=== PATIENT | male | born 1960 | race Caucasian/White ===

== ENCOUNTER 2021-02-03 19:49 | Inpatient (IN) | payer OTHER ==
[~2021-02-03] VITALS: Ht 182.9 cm; Wt 80.7 kg
--- NOTE | 2021-02-03 19:54 | NUR ---
Donis gibbons in [facility] - 02/03/21 at 1959 by ROSALINA CALLED TO TRIAGE. NOT IN WAITING ROOM
--- NOTE | 2021-02-03 19:59 | NUR ---
PT BIBA FROM HOME FOR MEDICAL CLEARANCE. PT ON A 5150 HOLD FOR DTS. PT CALM AND COOPERATIVE, AAOX4, VSS, RESPIRATIONS EVEN AND UNLABORED ON RA W/ NAD NOTED. PT CHANGED INTO GOWN, BELONGINGS PLACED TO LOCKER, SAFETY PRECAUTIONS IMPLEMENTED. SITTER AT BEDSIDE.
[2021-02-03 20:14] LABS: BASOPHILS # (AUTO) 0.1 /CMM (0.0-0.2); BASOPHILS % (AUTO) 1.5 % (0.0-2.0); HEMATOCRIT 40 % (39-51); HEMOGLOBIN 13.9 g/dL (13.5-17.5); LYMPHOCYTES # (AUTO) 1.6 /CMM (0.8-4.8); LYMPHOCYTES % (AUTO) 24.5 % (20.0-44.0); MEAN CORPUSCULAR HGB CONC 35 g/dl (31.0-36.0); MEAN CORPUSCULAR VOLUME 87 fL (80-96); MONOCYTES # (AUTO) 0.5 /CMM (0.1-1.30); MONOCYTES % (AUTO) 7.9 % (2.0-12.0); NEUTROPHILS # (AUTO) 3.9 /CMM (1.8-8.9); NEUTROPHILS % (AUTO) 59.1 % (43.0-81.0); PLATELET COUNT (AUTO) 267 /CMM (150-450); RED BLOOD CELL COUNT(AUTO) 4.62 MIL/uL (4.5-6.0); WHITE BLOOD COUNT (AUTO) 6.6 K/uL (4.3-11.0)
[2021-02-03] MEDS ORDERED: LORAZEPAM 1 MG TABLET ONE (20:14)
--- NOTE | 2021-02-03 20:24 | NUR ---
COVID SWAB SENT TO LAB
[2021-02-03 20:28] LABS: CALCIUM, SERUM 9.4 mg/dL (8.5-10.1); CARBON DIOXIDE 26 mmol/L (21-32); CHLORIDE 101 mmol/L (98-107); CREATININE 1.3 mg/dL (0.6-1.3); GLUCOSE 153 mg/dL (74-106); POTASSIUM 3.9 mmol/L (3.5-5.1); SODIUM SERUM 140 mmol/L (136-145); UREA NITROGEN, BLOOD 30 mg/dL (7-18)
[2021-02-03] MEDS ORDERED: LORAZEPAM 1 MG TABLET PO ONE (20:30)
[2021-02-03 20:37] LABS: ALANINE AMINOTRANSFERASE 39 U/L (12-78); ALBUMIN 3.8 g/dL (3.4-5.0); ALCOHOL, BLOOD < 3 mg/dL (0-0); ALKALINE PHOSPHATASE 117 U/L (46-116); ASPARTATE AMINOTRANSFERASE 23 U/L (15-37); BILIRUBIN,DIRECT 0.1 mg/dL (0.0-0.2); BILIRUBIN,TOTAL 0.3 mg/dL (0.2-1.0); TOTAL PROTEIN, SERUM 7.5 g/dL (6.4-8.2)
[2021-02-03 20:39] LABS: ACETAMINOPHEN 0 ug/ml (10-30)
--- NOTE | 2021-02-03 20:43 | NUR ---
covid negative per lab
[2021-02-03] MEDS ORDERED: IV NS 0.9% 1,000 ML BAG IV ONE (21:00)
--- NOTE | 2021-02-03 21:23 | NUR ---
REPORT GIVEN TO CORY MARTINEZ FOR ROMAN
[2021-02-03] MEDS ORDERED: MAGNESIUM HYDROXIDE 30 ML UDC PO PRN (23:00)
[2021-02-03] MEDS ORDERED: MAG HYDROX/AL HYDROX/SIMETH 30 ML UDC PO PRN (23:00)
[2021-02-03] MEDS ORDERED: ACETAMINOPHEN 325 MG TABLET PO PRN (23:00)
[2021-02-03] MEDS ORDERED: BLOOD SUGAR DIAGNOSTIC 1 EACH STRIP IN ONE (23:00)
[2021-02-03] MEDS ORDERED: DEXTROSE 50%-WATER 50 ML DISP.SYRIN IV PRN (23:00)
[2021-02-03] MEDS ORDERED: ESZO2TAB31 PO (23:02)
[2021-02-03] MEDS ORDERED: CARI3CAP PO (23:11)
[2021-02-03] MEDS ORDERED: DILT300C57 PO (23:12)
[2021-02-03] MEDS ORDERED: METO-358 PO (23:15)
[2021-02-03] MEDS ORDERED: GABA-532 PO (23:15)
[2021-02-03] MEDS ORDERED: METF-442 PO (23:16)
[2021-02-03] MEDS ORDERED: ATOR20TA PO (23:17)
[2021-02-03] MEDS ORDERED: PARO40TA PO (23:19)
--- NOTE | 2021-02-03 23:19 | NUR ---
RN NOTE PATIENT ADMITTED TO GPS UNIT, A & O X 3, DEPRESSED, QUIET & GUARDED. VERIFIED WITH THE PATIENT WHO TO CALL IN HIS FAMILY TO NOTIFY ABOUT HIS ADMISSION AT [facility] GPS UNIT. PATIENT STATED," I LIVE WITH MY SISTER KATARINA, WHO IS A PHYSICIAN AT [facility] & SHE IS AT WORK RIGHT NOW, SHE KNOWS THAT I AM HERE, DON'T CALL HER NOW, IT'S LATE." WHEN ASKED THE PATIENT ABOUT CALLING [facility]EW[facility] MELGOZA WHO IS LISTED ON THE FACE SHEET, PT. STATED," HE IS MY BROTHER IN LAW, IT'S TOO LATE & I DON'T WANT YOU TO CALL THEM TOO EARLY IN THE MORNING WELL, I WILL CALL THEM DURING DAY TIME TO LET THEM KNOW THAT I AM HERE EVEN MY SISTER KNOWS THAT I AM HERE." WILL CONTINUE TO MONITOR THE PATIENT FOR SAFETY, MOOD & BEHAVIOR.
[2021-02-03] MEDS ORDERED: CHLO25TA13 PO (23:21)
[2021-02-03] MEDS ORDERED: INSU100V7 SQ (23:25)
[2021-02-03] MEDS: TEMAZEPAM 7.5 MG CAPSULE PO PRN (23:25)
--- NOTE | 2021-02-03 23:26 | NUR ---
RN NOTES: INSOMNIA : PT. C/O INSOMNIA RESTORIL 7.5 MG PO PRN GIVEN, WILL CONTINUE TO MONITOR.
[2021-02-03] MEDS ORDERED: INSU100I4 SQ (23:28)
[2021-02-03] MEDS: INSULIN REGULAR, HUMAN 100 UNIT/ML 3 ML VIAL SQ PRN (23:53)
[2021-02-04] MEDS ORDERED: DEXTROSE 50%-WATER 50 ML DISP.SYRIN IV PRN
[2021-02-04] MEDS ORDERED: INSULIN REGULAR, HUMAN 100 UNIT/ML 3 ML VIAL SQ PRN
[2021-02-04 00:46] VITALS: BP 135/78
--- NOTE | 2021-02-04 01:19 | NUR ---
ADMISSION NOTES: ADMITTED THIS 60Y/O MALE PATIENT ADMIT FROM [facility] /INTIALLY FROM HOME , PT. ADMITTED TO GPS ON 5150 HOLD , PER HOLD DTS, GD PT. PT. REPORTED BEING DEPRESSED MORE THAN USUAL AND HOPELESS, I HAVE NOTHING TO LIVE, I WANT TO SLEEP AND NEVER WAKE UP, I WANT TO ,UPON FACE TO FACE ASSESSMENT PATIENT IS A&O X 3 ,DISHELVED , DEPRESSED , GUARDED FLAT AFFECT EASILY GETS AGITATED ,DENIES SI /HI AT THIS TIME, PT. IS POOR HISTORIAN, POOR INSIGHT ,POOR JUDGEMENT , PT. REFUSED TO SIGNS ADMISSION CONSENT PAPERS ,DUE TO TIRED BOTH MD AWARE AND NOTIFIED OF THE ADMISSION, BELONGINGS CONTRABAND WERE DONE ,PT. RIGHTS DISCUSS BY [employer] , PROVIDE THE PT. WITH HANDBOOK, AND MEDICATIONS GUIDE, ENVIRONMENTAL SAFETY CHECK DONE, ENCOURAGED PT. VERBALIZED ANY FEELING CONCERN TO STAFF, ORIENT TO UNIT POLICY, NO ACUTE DISTRESS NOTED,VITAL SIGNS WNL ,DENIES ANY PAIN AT THIS TIME,WILL CONTINUE TO MONITOR FOR Q15 SAFETY AND BEHAVIOR.
[2021-02-04] MEDS ORDERED: BLOOD SUGAR DIAGNOSTIC 1 EACH STRIP IN SCH (07:30)
[2021-02-04] MEDS: BLOOD SUGAR DIAGNOSTIC 1 EACH STRIP IN SCH ×4 (07:38→21:13)
[2021-02-04] MEDS: INSULIN REGULAR, HUMAN 100 UNIT/ML 3 ML VIAL SQ PRN ×4 (07:57→21:15)
[2021-02-04 08:00] VITALS: BP 141/77
[2021-02-04] MEDS: METOPROLOL SUCCINATE 50 MG TAB.SR.24H PO SCH (08:44)
[2021-02-04] MEDS: GABAPENTIN 300 MG CAPSULE PO SCH ×3 (08:44→17:16)
[2021-02-04] MEDS: DILTIAZEM HCL CD 300 MG PO SCH (08:45)
[2021-02-04] MEDS: METFORMIN 500 MG TABLET PO SCH ×2 (08:45→17:17)
[2021-02-04] MEDS: LORAZEPAM 0.5 MG TABLET PO PRN ×2 (08:48→14:48)
--- NOTE | 2021-02-04 08:51 | NUR ---
RN NOTE- C/O ANXIETY RESTLESSNESS. ATIVAN 0.5 MG GIVEN
--- NOTE | 2021-02-04 09:00 | NUR ---
RN NOTE- PT ALERT ORIENTED TO PERSON PLACE FLAT AFFECT QUIET WITHDRAWN DEPRESSED THOUGH DENIES SI AT MOMENT. MED COMPLIANT PO INTAKE GOOD
--- NOTE | 2021-02-04 09:30 | NUR ---
RN NOTE- PT STATES RX 'NOT ENOUGH' TOLD PT TO WAIT FOR FULL EFFECTIVENESS OF RX.
--- NOTE | 2021-02-04 14:49 | NUR ---
RN NOTE- C/O ANXIETY RESTLESSNESS/ ATIIVAN 0.5 MG GIVEN
--- NOTE | 2021-02-04 15:51 | NUR ---
RN NOTE- ATIVAN EFFECTIVE BUT PT INSISTS ON STRONGER ANTI ANXIETY RX. WILL NOTIFY DR MERCADO
[2021-02-04 16:00] VITALS: BP 113/62
--- NOTE | 2021-02-04 16:10 | NUR ---
Family Contact: SW called pts sister, Lorena ([phone]), and received collateral history regarding this pt and his relationship with his mom and the deterioration that took place once the mom . SW also discussed discharge placement and pts sister stated that she no longer feels as if she can take care of the pt. CARMEN stated that the discharge plan can be discussed on Sunday.
--- NOTE | 2021-02-04 16:46 | NUR ---
Initial Discharge Plan: Pt currently resides at his sisters house located at [address] [place] [address]; ([phone]). Per pts sister, Lorena ([phone]), she cannot take care of him anymore. SW will work with the pt and the MD regarding appropriate discharge planning. SW will form a safe and proper discharge.
--- NOTE | 2021-02-04 17:30 | NUR ---
RN NOTE- DR MERCADO CHANGED ATIVAN ORDER AND INCREASED TO ATIVAN 1 MG PO Q6H PRN
[2021-02-04 17:40] LABS: BILIRUBIN,URINE NEGATIVE (NEGATIVE); COLOR,URINE YELLOW (YELLOW); LEUKOCYTE ESTERASE ,URINE NEGATIVE (NEGATIVE); NITRITE, URINE NEGATIVE (NEGATIVE); PROTEIN,URINE NEGATIVE (NEGATIVE); UGLUCOSE >=1000 mg/dL (NEGATIVE); UROBILINOGEN,URINE 0.2 EU/dL (0.2)
[2021-02-04 17:50] LABS: CREATININE, URINE 85.4 MG/DL (30.0-125.0); URINE TOTAL PROTEIN 13.9 mg/dL (0-11.9)
[2021-02-04 17:59] LABS: BACTERIA,URINE None seen /HPF (None Seen); RBC,URINE 0-2 /HPF (0-2); SQUAMOUS EPITHELIAL CELL,UR 0-2 /HPF (None Seen); WBC,URINE 0-2 /HPF (0-3)
[2021-02-04 19:20] LABS: EOSINOPHIL,URINE None Seen
[2021-02-04] MEDS: PAROXETINE HCL 20 MG TABLET PO SCH (20:01)
[2021-02-04] MEDS: GABAPENTIN 400 MG CAPSULE PO SCH (20:01)
[2021-02-04 20:02] VITALS: BP 125/69
[2021-02-04] MEDS: ATORVASTATIN 10 MG TABLET PO SCH (21:10)
[2021-02-04] MEDS: INSULIN GLARGINE, 100 UNIT/ML CARTRIDGE SQ SCH (21:53)
--- NOTE | 2021-02-04 21:54 | NUR ---
RN NOTES: REFUSAL OF MEDICATIONS PT. REFUSED SCHEDULE MEDS ABILIFY 20 MG PO , AND INSULIN LANTUS , ENCOURGED X3 RISKS AND BENEFITS EXPLINED ,PT. STRONGLY REFUSED, PER PT. ABILIFY MAKE ME SICK ,I DON'T WANT TAKE IT ,WILL CONTINUTY WITH CARE .
[2021-02-04] MEDS ORDERED: ARIPIPRAZOLE 5 MG TABLET PO SCH (22:00)
[2021-02-04] MEDS: TEMAZEPAM 7.5 MG CAPSULE PO PRN (22:19)
--- NOTE | 2021-02-04 22:20 | NUR ---
RN NOTES: INSOMNIA : PT. C/O INSOMNIA RESTORIL 7.5 MG PO PRN GIVEN, WILL CONTINUE TO MONITOR.
[2021-02-05 06:42] LABS: BASOPHILS % (AUTO) 0.8 % (0.0-2.0); CALCIUM, SERUM 8.8 mg/dL (8.5-10.1); EOSINOPHILS % (AUTO) 7.2 % (0.0-6.0); HEMATOCRIT 38 % (39-51); HEMOGLOBIN 12.8 g/dL (13.5-17.5); LYMPHOCYTES # (AUTO) 1.6 /CMM (0.8-4.8); LYMPHOCYTES % (AUTO) 26.8 % (20.0-44.0); MEAN CORPUSCULAR HGB CONC 34 g/dl (31.0-36.0); MEAN CORPUSCULAR VOLUME 87 fL (80-96); MONOCYTES # (AUTO) 0.5 /CMM (0.1-1.30); MONOCYTES % (AUTO) 8.7 % (2.0-12.0); NEUTROPHILS # (AUTO) 3.3 /CMM (1.8-8.9); NEUTROPHILS % (AUTO) 56.5 % (43.0-81.0); PLATELET COUNT (AUTO) 231 /CMM (150-450); POTASSIUM 3.8 mmol/L (3.5-5.1); RED BLOOD CELL COUNT(AUTO) 4.34 MIL/uL (4.5-6.0); WHITE BLOOD COUNT (AUTO) 5.9 K/uL (4.3-11.0)
[2021-02-05 08:00] VITALS: BP 115/62
[2021-02-05] MEDS: INSULIN REGULAR, HUMAN 100 UNIT/ML 3 ML VIAL SQ PRN ×3 (08:17→17:28)
[2021-02-05] MEDS: BLOOD SUGAR DIAGNOSTIC 1 EACH STRIP IN SCH ×4 (08:20→21:12)
[2021-02-05] MEDS: METFORMIN 500 MG TABLET PO SCH ×2 (09:19→17:22)
[2021-02-05] MEDS: PAROXETINE HCL 20 MG TABLET PO SCH (09:19)
[2021-02-05] MEDS: LORAZEPAM 1 MG TABLET PO PRN ×2 (09:29→15:36)
--- NOTE | 2021-02-05 09:29 | NUR ---
given ativan 1 mg po for nervousness.
--- NOTE | 2021-02-05 10:34 | NUR ---
vital signs rechecked.now 135/70,heart rate 73 rr16,pox 95%.additional meds given.will recheck again.
[2021-02-05] MEDS: GABAPENTIN 400 MG CAPSULE PO SCH ×3 (10:36→17:22)
[2021-02-05] MEDS: DILTIAZEM HCL CD 300 MG PO SCH (10:37)
--- NOTE | 2021-02-05 15:36 | NUR ---
MEDICATED AGAIN WITH ATIVAN,DR. MERCADO JUST IN AND MADE AWARE PT. REFUSED ABILIFY LAST NIGHT.
[2021-02-05 16:00] VITALS: BP 117/78
[2021-02-05] MEDS: METOPROLOL SUCCINATE 50 MG TAB.SR.24H PO SCH (16:00)
[2021-02-05 19:55] VITALS: BP 127/69
[2021-02-05] MEDS: OLANZAPINE 10 MG TABLET PO SCH (21:09)
[2021-02-05] MEDS: ATORVASTATIN 10 MG TABLET PO SCH (21:10)
[2021-02-05] MEDS: INSULIN GLARGINE, 100 UNIT/ML CARTRIDGE SQ SCH (21:16)
[2021-02-05] MEDS: TEMAZEPAM 7.5 MG CAPSULE PO PRN (21:20)
--- NOTE | 2021-02-05 21:20 | NUR ---
NURSES NOTES: PATIENT REQUESTED FOR SLEEPING MEDICATION- RESTORIL 7.5 MG GIVEN ORDERED. WILL MONITOR PATIENT'S SLEEP PATTERN.
[2021-02-06] MEDS: BLOOD SUGAR DIAGNOSTIC 1 EACH STRIP IN SCH ×4 (07:26→21:13)
--- NOTE | 2021-02-06 07:26 | NUR ---
RN-CO: BS 126, NO INSULIN COVERAGE.
[2021-02-06 08:00] VITALS: BP 151/75
[2021-02-06] MEDS: PAROXETINE HCL 20 MG TABLET PO SCH (08:09)
[2021-02-06] MEDS: GABAPENTIN 400 MG CAPSULE PO SCH ×3 (08:09→17:23)
[2021-02-06] MEDS: METFORMIN 500 MG TABLET PO SCH ×2 (08:09→17:23)
[2021-02-06] MEDS: METOPROLOL SUCCINATE 50 MG TAB.SR.24H PO SCH (08:10)
[2021-02-06] MEDS: DILTIAZEM HCL CD 300 MG PO SCH (08:31)
[2021-02-06] MEDS: LORAZEPAM 1 MG TABLET PO PRN ×2 (11:43→17:56)
--- NOTE | 2021-02-06 11:43 | NUR ---
RN-CO: PT REQUESTED FOR ATIVAN FOR ANXIETY., GIVEN.
--- NOTE | 2021-02-06 11:45 | NUR ---
RN-CO: PATIENT REFUSED ACCUCHECK, HE STATED " I ALREADY STARTED EATING., "
[2021-02-06 16:00] VITALS: BP 114/70
[2021-02-06] MEDS: INSULIN REGULAR, HUMAN 100 UNIT/ML 3 ML VIAL SQ PRN ×2 (16:45→21:15)
[2021-02-06 20:19] VITALS: BP 94/47
[2021-02-06] MEDS: ATORVASTATIN 10 MG TABLET PO SCH (21:14)
[2021-02-06] MEDS: OLANZAPINE 10 MG TABLET PO SCH (21:14)
[2021-02-06] MEDS: INSULIN GLARGINE, 100 UNIT/ML CARTRIDGE SQ SCH (21:16)
[2021-02-06] MEDS: TEMAZEPAM 7.5 MG CAPSULE PO PRN (21:16)
--- NOTE | 2021-02-06 21:30 | NUR ---
NURSES NOTES: PATIENT REQUESTED FOR SLEEPING MEDICATION. RESTORIL 7.5 MG GIVEN ORALLY PRN ORDER. WILL MONITOR EFFICACY OF MEDICATION TO PATIENT.
[2021-02-07] MEDS: BLOOD SUGAR DIAGNOSTIC 1 EACH STRIP IN SCH ×4 (07:37→21:32)
[2021-02-07] MEDS: INSULIN REGULAR, HUMAN 100 UNIT/ML 3 ML VIAL SQ PRN ×3 (07:42→21:40)
--- NOTE | 2021-02-07 07:43 | NUR ---
MS/RN NOTE ACCUCHECK SHOWED PATIENT HAD 154 BS. INSULIN COVERAGE GIVEN, 2 UNITS.
[2021-02-07 08:00] VITALS: BP 133/66
[2021-02-07] MEDS: METFORMIN 500 MG TABLET PO SCH ×2 (08:36→18:04)
[2021-02-07] MEDS: GABAPENTIN 400 MG CAPSULE PO SCH ×3 (08:36→16:09)
[2021-02-07] MEDS: DILTIAZEM HCL CD 300 MG PO SCH (08:36)
[2021-02-07] MEDS: PAROXETINE HCL 20 MG TABLET PO SCH (08:37)
[2021-02-07] MEDS: METOPROLOL SUCCINATE 50 MG TAB.SR.24H PO SCH (08:37)
[2021-02-07] MEDS: LORAZEPAM 1 MG TABLET PO PRN ×2 (10:56→18:04)
--- NOTE | 2021-02-07 10:57 | NUR ---
MS/RN NOTE PATIENT REQUESTING ATIVAN STATES FEELING ANXIOUS. ATIVAN WAS GIVEN.
--- NOTE | 2021-02-07 13:10 | NUR ---
UR Note: [employer] case operator, Yoon ([phone]), contacted the SW and stated that the pt qualifies for a Behavioral Health Condition Management which is bascially case management resources and access to a clinician, Dr. Linh Lang ([phone]).
[2021-02-07 16:32] VITALS: BP 101/50
[2021-02-07 20:00] VITALS: BP 107/49
[2021-02-07] MEDS: TEMAZEPAM 7.5 MG CAPSULE PO PRN (21:02)
[2021-02-07] MEDS: OLANZAPINE 10 MG TABLET PO SCH (21:02)
[2021-02-07] MEDS: ATORVASTATIN 10 MG TABLET PO SCH (21:02)
[2021-02-07] MEDS: INSULIN GLARGINE, 100 UNIT/ML CARTRIDGE SQ SCH (21:36)
[2021-02-08] MEDS: BLOOD SUGAR DIAGNOSTIC 1 EACH STRIP IN SCH ×4 (07:40→21:42)
[2021-02-08] MEDS: INSULIN REGULAR, HUMAN 100 UNIT/ML 3 ML VIAL SQ PRN ×4 (07:48→22:04)
[2021-02-08 08:00] VITALS: BP 151/69
[2021-02-08] MEDS: METFORMIN 500 MG TABLET PO SCH ×2 (08:08→17:52)
[2021-02-08] MEDS: DILTIAZEM HCL CD 300 MG PO SCH (08:10)
[2021-02-08] MEDS: GABAPENTIN 400 MG CAPSULE PO SCH ×3 (08:10→16:25)
[2021-02-08] MEDS: PAROXETINE HCL 20 MG TABLET PO SCH (08:10)
[2021-02-08] MEDS: METOPROLOL SUCCINATE 50 MG TAB.SR.24H PO SCH (08:11)
--- NOTE | 2021-02-08 09:00 | NUR ---
RN NOTE- PT QUIET FLAT AFFECT DIRECTABLE MED COMPLIANT DEPRESSED DENIES SI HI AH VH
--- NOTE | 2021-02-08 12:21 | NUR ---
Family Contact: SW called pts sisterLorena ([phone]), and left a voicemail stating that the SW would like to discuss the pts discharge plan.
[2021-02-08] MEDS: LORAZEPAM 1 MG TABLET PO PRN (12:34)
--- NOTE | 2021-02-08 12:34 | NUR ---
RN NOTE- PT ANXIOUS. REQUESTING PRN. ATIVAN 1MG GIVEN
[2021-02-08 16:00] VITALS: BP 132/68
[2021-02-08 20:30] VITALS: BP 96/43
[2021-02-08 21:40] VITALS: BP 109/62
--- NOTE | 2021-02-08 21:40 | NUR ---
RN NOTE: RECHECKED PATIENT'S VITALS, 109/62, 65, 18, 97.6, 97% AT ROOM AIR. PATIENT HAD SNACK & TOLERATED WELL. NO OTHER SYMPTOMS VERBALIZED BY THE PATIENT AT THIS TIME. WILL CONTINUE TO MONITOR FOR ANY ROMAN.
[2021-02-08] MEDS: TEMAZEPAM 7.5 MG CAPSULE PO PRN (21:52)
[2021-02-08] MEDS: ATORVASTATIN 10 MG TABLET PO SCH (21:52)
--- NOTE | 2021-02-08 21:54 | NUR ---
RN NOTE: INSOMNIA PATIENT VERBALIZED THAT HE IS UNABLE TO SLEEP & WANTED TO TAKE SLEEPING MEDICINE AT THIS TIME. PRN RESTORIL 7.5 MG 1 CAP PO ADMINISTERED. VITALS STABLE AT THIS TIME. WILL CONTINUE TO MONITOR.
[2021-02-08] MEDS: OLANZAPINE 10 MG TABLET PO SCH (21:55)
--- NOTE | 2021-02-08 21:56 | NUR ---
RN NOTE PATIENT REFUSED TO TAKE ZYPREXA 15 MG SCHEDULED DESPITE OF RISKS & BENEFITS EXPLANATIONS. PATIENT PREFERRED TO TAKE RESTORIL DUE TO C/O SLEEPLESSNESS. WILL CONTINUE TO MONITOR THE PATIENT FOR ANY CHANGE OF CONDITION.
[2021-02-08] MEDS: INSULIN GLARGINE, 100 UNIT/ML CARTRIDGE SQ SCH (22:03)
--- NOTE | 2021-02-08 23:43 | NUR ---
RN NOTE: DECREASED BLOOD PRESSURE PATIENT'S VITALS CHECKED 96/43, 73, 16, 98.5, 99% AT ROOM AIR. PATIENT IS ASYMPTOMATIC AT THIS TIME. RESTING IN BED, VERBALLY RESPONSIVE, NO ACUTE CHANGES NOTED. SNACK & JUICE PROVIDED & PT. IS TOLERATING WELL. LOWER EXTREMITIES ELEVATED. CONTINUING TO MONITOR THE PATIENT VERY CLOSELY FOR ANY CHANGE OF CONDITION.
[2021-02-09] MEDS: BLOOD SUGAR DIAGNOSTIC 1 EACH STRIP IN SCH ×4 (07:36→21:56)
[2021-02-09] MEDS: INSULIN REGULAR, HUMAN 100 UNIT/ML 3 ML VIAL SQ PRN ×4 (07:39→22:07)
[2021-02-09 08:00] VITALS: BP 149/76
[2021-02-09] MEDS: METFORMIN 500 MG TABLET PO SCH ×2 (08:30→18:22)
[2021-02-09] MEDS: DILTIAZEM HCL CD 300 MG PO SCH (08:55)
[2021-02-09] MEDS: GABAPENTIN 400 MG CAPSULE PO SCH ×3 (08:55→17:17)
[2021-02-09] MEDS: PAROXETINE HCL 20 MG TABLET PO SCH (08:56)
[2021-02-09] MEDS: METOPROLOL SUCCINATE 50 MG TAB.SR.24H PO SCH (08:56)
--- NOTE | 2021-02-09 09:00 | NUR ---
RN NOTE- REFUSES SHOWER AND INTERACTION W OTHERS PT QUIET FLAT AFFECT DIRECTABLE MED COMPLIANT DEPRESSED DENIES SI HI AH VH
[2021-02-09] MEDS: LORAZEPAM 1 MG TABLET PO PRN ×2 (09:03→15:45)
--- NOTE | 2021-02-09 09:04 | NUR ---
RN NOTE- PT W C/O ANXIETY. ATIVAN 1 MG GIVEN
--- NOTE | 2021-02-09 12:18 | NUR ---
Family Contact: SW called pts sisterLorena ([phone]), and left a voicemail stating that the SW would like to discuss the pts discharge plan.
--- NOTE | 2021-02-09 12:19 | NUR ---
UR Note: CARMEN called [employer] child welfare caseworker, Ugo ([phone]), and left a clinical on her voicemail requesting additional authorization.
--- NOTE | 2021-02-09 14:35 | NUR ---
Family Contact: Pts sister, Lorena ([phone]), called the SW and stated that she does not understand why the insurance company cannot authorize more time for the pt because he is not stable and SW explained the UR process and having to ask for additional days a few days at a time. Pts sister stated that she cannot have the pt to return to her home and placement needs to be secured otherwise the pt will be homeless. She stated that she is aware that the pt will not pay for any placement and states that if that is the case he still cannot come home and "will have to find an overpass to stay under." SW stated that she will update her once there is an answer from the insurance company regarding the pts authorization.
--- NOTE | 2021-02-09 15:45 | NUR ---
RN NOTE- PT W ANXIETY. ATIVAN 1 MG GIVEN
[2021-02-09 16:00] VITALS: BP 121/68
[2021-02-09 20:55] VITALS: BP 113/53
[2021-02-09] MEDS: ATORVASTATIN 10 MG TABLET PO SCH (21:55)
[2021-02-09] MEDS: OLANZAPINE 10 MG TABLET PO SCH (21:55)
[2021-02-09] MEDS: INSULIN GLARGINE, 100 UNIT/ML CARTRIDGE SQ SCH (22:06)
[2021-02-10 08:00] VITALS: BP 140/70
[2021-02-10] MEDS: BLOOD SUGAR DIAGNOSTIC 1 EACH STRIP IN SCH ×4 (08:21→21:15)
[2021-02-10] MEDS: METFORMIN 500 MG TABLET PO SCH ×2 (09:02→18:17)
[2021-02-10] MEDS: GABAPENTIN 400 MG CAPSULE PO SCH ×3 (09:02→16:38)
[2021-02-10] MEDS: METOPROLOL SUCCINATE 50 MG TAB.SR.24H PO SCH (09:03)
[2021-02-10] MEDS: PAROXETINE HCL 20 MG TABLET PO SCH (09:03)
[2021-02-10] MEDS: DILTIAZEM HCL CD 300 MG PO SCH (09:03)
[2021-02-10] MEDS: LORAZEPAM 1 MG TABLET PO PRN (11:32)
--- NOTE | 2021-02-10 12:15 | NUR ---
Probable Cause Hearing: Pts [id number] hold was upheld for grave disability.
[2021-02-10] MEDS: INSULIN REGULAR, HUMAN 100 UNIT/ML 3 ML VIAL SQ PRN ×3 (12:23→21:18)
--- NOTE | 2021-02-10 13:52 | NUR ---
UR Note: Yolie heel caser, Ugo ([phone]), called the SW and left a voicemail stating that the pt is authorized an additional two days with coverage until February 11. agricultural equipment sales manager stated that she wanted additional information for the next review: fax number to send aftercare providers list If the hospital has PHP or IOP If the pts family is involved Why the sister wants higher level of care Past treatment history How long the pt has had psych issues Any IMs that can be given Confirm Diagnosis If the pt has outside providers/[facility] If the pt works If the pt bathes
--- NOTE | 2021-02-10 13:58 | NUR ---
Family Contact: CARMEN called pts sisterLorena ([phone]), but voicemail box was full and SW could not leave a message. SW will try again.
[2021-02-10 16:00] VITALS: BP 115/59
[2021-02-10 20:54] VITALS: BP 129/74
[2021-02-10] MEDS: ATORVASTATIN 10 MG TABLET PO SCH (21:11)
[2021-02-10] MEDS: OLANZAPINE 10 MG TABLET PO SCH (21:11)
[2021-02-10] MEDS: TEMAZEPAM 7.5 MG CAPSULE PO PRN (21:25)
--- NOTE | 2021-02-10 21:25 | NUR ---
GPS-RN NOTES: INSOMNIA PATIENT C/O INABILITY TO SLEEP. ADMINISTERED RESTORIL 7.5MG PO ORDERED. WILL CONTINUE TO MONITOR.
[2021-02-10] MEDS: INSULIN GLARGINE, 100 UNIT/ML CARTRIDGE SQ SCH (21:29)
[2021-02-11] MEDS: BLOOD SUGAR DIAGNOSTIC 1 EACH STRIP IN SCH ×4 (07:35→22:09)
[2021-02-11] MEDS: INSULIN REGULAR, HUMAN 100 UNIT/ML 3 ML VIAL SQ PRN ×4 (07:36→22:12)
[2021-02-11 08:00] VITALS: BP 145/75
[2021-02-11] MEDS: METFORMIN 500 MG TABLET PO SCH ×2 (08:18→18:45)
--- NOTE | 2021-02-11 08:30 | NUR ---
Individual Intervention: CARMEN met with the pt along with the SW's drilling supervisor, Khadra Burdick LCSW. Pt was informed once again that his sister is not comfortable with him returning to her home due to his behaviors. Pt stated that he spoke to her and that she stated that if he takes a shower then she will consider it. Pt stated that he has not been due to feeling depressed. SW Fishing Tool Supervisor asked that pt about his income and stated that if he cannot return to sister's home then a board and care placement will have to be secured and the pt stated that he has money and does not want to be homeless so he will pay. Pt stated that he does not get disability because he did not apply for it.
--- NOTE | 2021-02-11 09:00 | NUR ---
RN NOTE- WITHDRAWN, SLEEPS, MINIMAL INTERACTION RECEIVED PT IN BED,HAS FLAT AFFECT DIRECTABLE , DENIES SI/SH.
[2021-02-11] MEDS: DILTIAZEM HCL CD 300 MG PO SCH (09:32)
[2021-02-11] MEDS: GABAPENTIN 400 MG CAPSULE PO SCH ×3 (09:32→16:03)
[2021-02-11] MEDS: METOPROLOL SUCCINATE 50 MG TAB.SR.24H PO SCH (09:32)
[2021-02-11] MEDS: PAROXETINE HCL 20 MG TABLET PO SCH (09:32)
[2021-02-11] MEDS: LORAZEPAM 1 MG TABLET PO PRN ×2 (10:49→17:05)
--- NOTE | 2021-02-11 10:49 | NUR ---
RN NOTE- PT W ANXIETY. ATIVAN 1 MG GIVEN
--- NOTE | 2021-02-11 12:10 | NUR ---
Family Contact: CARMEN called pts sisterLorena ([phone]), but voicemail box was full and SW could not leave a message. SW will try again.
--- NOTE | 2021-02-11 12:39 | NUR ---
UR Note: SW called [employer] case supervisor, Ugo ([phone]), and conducted a live clinical. Pts case supervisor authorized coverage until 02/14/21. Auth# [id number]
[2021-02-11 16:00] VITALS: BP 122/61
--- NOTE | 2021-02-11 17:05 | NUR ---
RN NOTE- PT C/O ANXIOUSNESS. ATIVAN 1 MG GIVEN
--- NOTE | 2021-02-11 19:30 | NUR ---
RN OPENING NOTE REPORT RECIEVED FROM ADDIS RAY. PER REPORT ENGAGES MINIMAL INTERACTION WITHDRAWN NO SIGNIFICANT CHANGE IN STATUS. PT CURRENTLY IN BED. RESPONDS WHEN ENGAGED. COOPERATIVE. FLAT AFFECT DIRECTABLE, DENIES SI/HI AT THIS TIME. WILL CONT TO MONITOR PER PROTOCOL.
[2021-02-11 20:20] VITALS: BP 129/68
[2021-02-11] MEDS: INSULIN GLARGINE, 100 UNIT/ML CARTRIDGE SQ SCH (22:12)
[2021-02-11] MEDS: OLANZAPINE 10 MG TABLET PO SCH (22:21)
[2021-02-11] MEDS: TEMAZEPAM 7.5 MG CAPSULE PO PRN (22:22)
[2021-02-11] MEDS: ATORVASTATIN 10 MG TABLET PO SCH (22:22)
[2021-02-12] MEDS: BLOOD SUGAR DIAGNOSTIC 1 EACH STRIP IN SCH ×4 (07:26→22:15)
[2021-02-12 08:00] VITALS: BP 134/68
[2021-02-12] MEDS: INSULIN REGULAR, HUMAN 100 UNIT/ML 3 ML VIAL SQ PRN ×3 (08:07→17:12)
[2021-02-12] MEDS: PAROXETINE HCL 20 MG TABLET PO SCH (08:59)
[2021-02-12] MEDS: GABAPENTIN 400 MG CAPSULE PO SCH ×3 (08:59→16:05)
[2021-02-12] MEDS: METFORMIN 500 MG TABLET PO SCH ×2 (08:59→17:07)
[2021-02-12] MEDS: LORAZEPAM 1 MG TABLET PO PRN ×2 (09:00→18:23)
[2021-02-12] MEDS: DILTIAZEM HCL CD 300 MG PO SCH (09:00)
[2021-02-12] MEDS: METOPROLOL SUCCINATE 50 MG TAB.SR.24H PO SCH (09:02)
[2021-02-12 16:00] VITALS: BP 96/54
[2021-02-12 20:31] VITALS: BP 128/70
[2021-02-12] MEDS: ATORVASTATIN 10 MG TABLET PO SCH (22:07)
[2021-02-12] MEDS: OLANZAPINE 10 MG TABLET PO SCH (22:08)
[2021-02-12] MEDS: INSULIN GLARGINE, 100 UNIT/ML CARTRIDGE SQ SCH (22:19)
--- NOTE | 2021-02-13 06:34 | NUR ---
GPS RN CLOSING NOTES: PATIENT IS SLEEPING COMFORTABLY IN BED. PATIENT SLEPT 7HR THIS SHIFT. PATIENT WAS MED COMPLIANT THIS SHIFT. NO C/O PAIN AND NO BEHAVIORAL ISSUES THIS SHIFT. NO S/S OF DISTRESS. RESPIRATION EVEN AND UNLABORED WITH EQUAL RISE AND FALL OF THE CHEST ON ROOM AIR. ALL PATIENT CARE NEEDS HAVE BEEN MET ANTICIPATED. BED IN LOWEST POSITION AND LOCKED WITH SIDE RAILS UP X2. WILL CONTINUE TO MONITOR FOR SAFETY, MOOD AND BEHAVIOR AND ENDORSE TO AM SHIFT.
[2021-02-13 08:00] VITALS: BP_SYST 101; BP_SYST 123; BP_DIAS 55; BP_DIAS 61
[2021-02-13] MEDS: GABAPENTIN 400 MG CAPSULE PO SCH ×3 (08:54→16:20)
[2021-02-13] MEDS: PAROXETINE HCL 20 MG TABLET PO SCH (08:54)
[2021-02-13] MEDS: METFORMIN 500 MG TABLET PO SCH ×2 (08:54→18:07)
[2021-02-13] MEDS: BLOOD SUGAR DIAGNOSTIC 1 EACH STRIP IN SCH ×4 (08:55→22:01)
[2021-02-13] MEDS: METOPROLOL SUCCINATE 50 MG TAB.SR.24H PO SCH (08:55)
[2021-02-13] MEDS: DILTIAZEM HCL CD 300 MG PO SCH (08:55)
[2021-02-13] MEDS: INSULIN REGULAR, HUMAN 100 UNIT/ML 3 ML VIAL SQ PRN ×4 (08:59→21:51)
[2021-02-13] MEDS: LORAZEPAM 1 MG TABLET PO PRN ×2 (09:05→17:46)
--- NOTE | 2021-02-13 09:55 | NUR ---
RN NOTE- PT FEELING ANXIOUS REQUESTING MEDICATION ANXIETY. ATIVAN 1 MG GIVEN
--- NOTE | 2021-02-13 17:47 | NUR ---
RN NOTE- PT FEELING ANXIOUS REQUESTING MEDICATION ANXIETY. ATIVAN 1 MG GIVEN
[2021-02-13 20:34] VITALS: BP 115/50
[2021-02-13] MEDS: ATORVASTATIN 10 MG TABLET PO SCH (21:20)
[2021-02-13] MEDS: OLANZAPINE 10 MG TABLET PO SCH (21:20)
[2021-02-13] MEDS: TEMAZEPAM 7.5 MG CAPSULE PO PRN (21:21)
[2021-02-13] MEDS: INSULIN GLARGINE, 100 UNIT/ML CARTRIDGE SQ SCH (21:50)
--- NOTE | 2021-02-13 22:10 | NUR ---
RN note Patient refused skin reassessment.
[2021-02-14] MEDS: BLOOD SUGAR DIAGNOSTIC 1 EACH STRIP IN SCH ×4 (07:23→21:02)
[2021-02-14] MEDS: INSULIN REGULAR, HUMAN 100 UNIT/ML 3 ML VIAL SQ PRN ×3 (07:32→21:04)
[2021-02-14 08:00] VITALS: BP 155/78
[2021-02-14] MEDS: PAROXETINE HCL 20 MG TABLET PO SCH (08:20)
[2021-02-14] MEDS: METFORMIN 500 MG TABLET PO SCH ×2 (08:20→17:02)
[2021-02-14] MEDS: DILTIAZEM HCL CD 300 MG PO SCH (08:20)
[2021-02-14] MEDS: GABAPENTIN 400 MG CAPSULE PO SCH ×3 (08:20→16:45)
[2021-02-14] MEDS: METOPROLOL SUCCINATE 50 MG TAB.SR.24H PO SCH (08:21)
[2021-02-14] MEDS: LORAZEPAM 1 MG TABLET PO PRN ×2 (08:29→16:45)
--- NOTE | 2021-02-14 10:37 | NUR ---
Family Contact: Pts brother in law, Torito ([phone]), called the SW and informed her that the pt is refusing to shower and brush his teeth and is forgetting the verbal agreements that he has been making to the family and the staff. Pts brother stated that he wants a call to be set up so that the pt can be informed of everything all at once. SW stated that she can arrange that and discussed that if the pt cannot return to the home then he would have to go to a board and care. Pts brother in law stated that they have been having daily conversations and they do not feel that he is ready to return home. SW stated that she will call back and set up a meeting time.
--- NOTE | 2021-02-14 13:16 | NUR ---
RN NOTES PATIENT SEEN OUT OF BED AND ABLE TO AMBULATE W/ STEADY GAIT ON THE HALLWAY.
--- NOTE | 2021-02-14 13:56 | NUR ---
UR Note: CARMEN called [employer] mattress spring encaser, Ugo ([phone]), and conducted a clinical on her voicemail. Auth# [id number]
--- NOTE | 2021-02-14 15:54 | NUR ---
Family Contact: SW called the pts brother in law, Torito ([phone]), for a family meeting with the pt and the SW. Pts brother in law joined the pts sister, Lorena ([phone]), into the conversation as she was available. Pts family discussed how their terms were given and the pt refused to do them. They are stating that the only two options are for him to go to a board and care that he will have to pay for or return to his sisters home where he will have to pay for the home health.
[2021-02-14 16:00] VITALS: BP 101/51
[2021-02-14 20:05] VITALS: BP 132/71
[2021-02-14] MEDS: ATORVASTATIN 10 MG TABLET PO SCH (21:02)
[2021-02-14] MEDS: TEMAZEPAM 7.5 MG CAPSULE PO PRN (21:02)
[2021-02-14] MEDS: INSULIN GLARGINE, 100 UNIT/ML CARTRIDGE SQ SCH (21:05)
[2021-02-14] MEDS: OLANZAPINE 10 MG TABLET PO SCH (21:06)
--- NOTE | 2021-02-15 06:40 | NUR ---
RN NOTES, PATIENT STILL SLEEPING AT THIS TIME, GETTING UP ONLY TO USE THE RESTROOM, WITH ADEQUATE HOURS OF LEEP, NO DISRUPTIVE BEHAVIOR NOTED, THROUGHOUT THE SHIFT, HAD SNACK LAST NIGHT AND CONSUME 100%, COMPLIANT WITH MEDICATION AND CARE, NO DISTRESS NOTED DURING THE NIGHT, WILL ENDORSE CONTINUITY OF CARE TO ONCOMING NURSE
[2021-02-15 08:00] VITALS: BP 139/78
[2021-02-15] MEDS: BLOOD SUGAR DIAGNOSTIC 1 EACH STRIP IN SCH ×4 (08:18→22:10)
[2021-02-15] MEDS: LORAZEPAM 1 MG TABLET PO PRN ×2 (08:22→17:36)
--- NOTE | 2021-02-15 08:30 | NUR ---
MEDICATED WITH ATIVAN FOR NERVOUSNESS.
[2021-02-15] MEDS: INSULIN REGULAR, HUMAN 100 UNIT/ML 3 ML VIAL SQ PRN ×3 (08:38→17:48)
[2021-02-15] MEDS: GABAPENTIN 400 MG CAPSULE PO SCH ×3 (08:39→17:36)
[2021-02-15] MEDS: METFORMIN 500 MG TABLET PO SCH ×2 (08:40→17:36)
[2021-02-15] MEDS: DILTIAZEM HCL CD 300 MG PO SCH (08:40)
[2021-02-15] MEDS: METOPROLOL SUCCINATE 50 MG TAB.SR.24H PO SCH (11:35)
[2021-02-15] MEDS: PAROXETINE HCL 20 MG TABLET PO SCH (11:36)
[2021-02-15 16:00] VITALS: BP 125/64
--- NOTE | 2021-02-15 16:22 | NUR ---
Family Contact: SW called the pts brother in law, Torito ([phone]), and informed him that the SW spoke to the pt and that the pt stated that he wanted to be discharged back to their home with home health. Pts brother in law stated that the pt told his sister this morning that he will go to a Board and Care. Pts brother in law stated that he will have to speak with his and call the SW in the morning.
--- NOTE | 2021-02-15 16:48 | NUR ---
[facility] Referral: CARMEN faxed a referral with attn to [facility] to the fax number: [phone].
--- NOTE | 2021-02-15 17:36 | NUR ---
given ativan 1 mg po for nervousness.
--- NOTE | 2021-02-15 19:30 | NUR ---
GPS RN NOC NOTE REPORT RECIEVED FROM AMAIRANI Lin RN. PATIENT IN BED RESTING, AMBULAORY, FOLLOWS DIRECTIONS, COOPERTAIVE WITH CARE, ABLE TO MOVE INDEPENDENTLY, PER REPORT COMPLIANT W/ MEDS. WILL CONTINUE TO MONITOR PER PROTOCOL. DENIES SI/HI.
[2021-02-15 20:29] VITALS: BP 128/68
[2021-02-15] MEDS: INSULIN GLARGINE, 100 UNIT/ML CARTRIDGE SQ SCH (22:14)
[2021-02-15] MEDS: OLANZAPINE 10 MG TABLET PO SCH (22:17)
[2021-02-15] MEDS: ATORVASTATIN 10 MG TABLET PO SCH (22:17)
[2021-02-15] MEDS: TEMAZEPAM 7.5 MG CAPSULE PO PRN (22:23)
[2021-02-16 06:40] LABS: BASOPHILS % (AUTO) 0.7 % (0.0-2.0); EOSINOPHILS % (AUTO) 7.8 % (0.0-6.0); HEMATOCRIT 36 % (39-51); HEMOGLOBIN 12.4 g/dL (13.5-17.5); LYMPHOCYTES # (AUTO) 1.5 /CMM (0.8-4.8); LYMPHOCYTES % (AUTO) 25.6 % (20.0-44.0); MEAN CORPUSCULAR HGB CONC 35 g/dl (31.0-36.0); MEAN CORPUSCULAR VOLUME 87 fL (80-96); MONOCYTES # (AUTO) 0.5 /CMM (0.1-1.30); MONOCYTES % (AUTO) 7.8 % (2.0-12.0); NEUTROPHILS # (AUTO) 3.4 /CMM (1.8-8.9); NEUTROPHILS % (AUTO) 58.1 % (43.0-81.0); PLATELET COUNT (AUTO) 216 /CMM (150-450); RED BLOOD CELL COUNT(AUTO) 4.09 MIL/uL (4.5-6.0); WHITE BLOOD COUNT (AUTO) 5.9 K/uL (4.3-11.0)
[2021-02-16 07:17] LABS: CALCIUM, SERUM 8.6 mg/dL (8.5-10.1)
[2021-02-16 08:00] VITALS: BP 138/75
[2021-02-16] MEDS: BLOOD SUGAR DIAGNOSTIC 1 EACH STRIP IN SCH ×4 (08:02→21:11)
[2021-02-16] MEDS: INSULIN REGULAR, HUMAN 100 UNIT/ML 3 ML VIAL SQ PRN ×3 (09:20→21:59)
[2021-02-16] MEDS: PAROXETINE HCL 20 MG TABLET PO SCH (09:35)
[2021-02-16] MEDS: METFORMIN 500 MG TABLET PO SCH ×2 (09:35→17:29)
[2021-02-16] MEDS: GABAPENTIN 400 MG CAPSULE PO SCH ×3 (09:35→17:29)
[2021-02-16] MEDS: DILTIAZEM HCL CD 300 MG PO SCH (09:35)
[2021-02-16] MEDS: METOPROLOL SUCCINATE 50 MG TAB.SR.24H PO SCH (09:36)
[2021-02-16] MEDS: LORAZEPAM 1 MG TABLET PO PRN ×2 (09:46→17:29)
--- NOTE | 2021-02-16 09:46 | NUR ---
given ativan for nervousness.
--- NOTE | 2021-02-16 11:36 | NUR ---
Family Contact: Pts brother in law, Torito ([phone]), called the SW and stated that the pt has to be discharged to a board and care because he does not want the pt in his home. SW stated that she will proceed with the discharge and that the facility will contact them for payment.
--- NOTE | 2021-02-16 15:00 | NUR ---
Facility Contact: CARMEN called Castillo ([phone]) at [facility] and confirmed that the pt can be discharged there tomorrow.
--- NOTE | 2021-02-16 15:07 | NUR ---
Family Contact: CARMEN called the pts brother in law, Torito ([phone]), and informed him that a Board and Care was found for the pt. CARMEN provided him with the info so that the payment can be discussed.
[2021-02-16 16:00] VITALS: BP 123/85
--- NOTE | 2021-02-16 17:31 | NUR ---
given ativan for nervousness.
[2021-02-16 20:00] VITALS: BP 112/54
[2021-02-16] MEDS: OLANZAPINE 10 MG TABLET PO SCH (21:10)
[2021-02-16] MEDS: ATORVASTATIN 10 MG TABLET PO SCH (21:10)
[2021-02-16] MEDS: TEMAZEPAM 7.5 MG CAPSULE PO PRN (21:10)
[2021-02-16] MEDS ORDERED: INSULIN GLARGINE, 100 UNIT/ML CARTRIDGE SQ SCH (22:00)
[2021-02-17] MEDS: BLOOD SUGAR DIAGNOSTIC 1 EACH STRIP IN SCH ×2 (07:56→12:14)
[2021-02-17 08:00] VITALS: BP 141/73
[2021-02-17] MEDS: INSULIN REGULAR, HUMAN 100 UNIT/ML 3 ML VIAL SQ PRN ×2 (08:35→12:59)
[2021-02-17] MEDS: DILTIAZEM HCL CD 300 MG PO SCH (08:36)
[2021-02-17 08:37] VITALS: BP 141/73
[2021-02-17] MEDS: METOPROLOL SUCCINATE 50 MG TAB.SR.24H PO SCH (08:37)
[2021-02-17] MEDS: PAROXETINE HCL 20 MG TABLET PO SCH (08:37)
[2021-02-17] MEDS: METFORMIN 500 MG TABLET PO SCH (08:37)
[2021-02-17] MEDS: GABAPENTIN 400 MG CAPSULE PO SCH ×2 (08:37→12:15)
--- NOTE | 2021-02-17 12:12 | NUR ---
Home Health Referral: CARMEN faxed a home health referral to [facility] with attn to Admissions to the fax number: [phone].
[2021-02-17] MEDS: LORAZEPAM 1 MG TABLET PO PRN (12:15)
--- NOTE | 2021-02-17 12:16 | NUR ---
GPS/RN-NOTES PATIENT REQUESTING ATIVAN. STATED " I'M ANXIOUS ,I NEED ATIVAN " ATIVAN 1MG P.O GIVEN PRN ORDER. WILL CONT. MONITORING FOR SAFETY AND BEHAVIOR.
--- NOTE | 2021-02-17 12:35 | NUR ---
Family Contact: Pts brother in law, Torito ([phone]), called the SW and stated that they changed their mind and will not be accepting the pt back in their home at this time. SW stated that she will talk to the pt to determine what he wants to do.
--- NOTE | 2021-02-17 13:30 | NUR ---
GPS/RN-NOTES PATIENT LAYING IN BED AWAKE,ALERT ,CALM,NO ACUTE DISTRESS.
--- NOTE | 2021-02-17 13:32 | NUR ---
Discharge Note: Pt will be discharged to [facility] located at [address] [place] [id number]; ([phone]). Pt will be transported in a taxi at 2pm. Pts brother in law, Torito ([phone]), and pt's sister, Lorena ([phone]), were notified of the placement. Upon discharge, the pt appears to be in a dysphoric mood and presents with a distressed affect. Pt appears to be alert and oriented x4 (time, place, self and situation). Pt denies both suicidal and homicidal ideation as well as auditory and visual hallucinations. Pt will follow up with psychiatrist, Dr. Homer Jordan, located at [address] [place] [address]; and pts lamp assembler, Dr. Alyson Galeas, [facility] [address] [facility] [place] [address]; . The multidisciplinary exit care form was done, printed, signed, and given to the patient.
--- NOTE | 2021-02-17 13:42 | NUR ---
UR Note: CARMEN called [employer] case sealer, Ugo ([phone]), and conducted a discharge clinical on her voicemail. Auth# [id number]
--- NOTE | 2021-02-17 15:09 | NUR ---
GPS/RN-DISCHARGE NOTES RECEIVED T.O DISCHARGE ORDER FROM DR. MERCADO ( PSYCHIATRIST) .PATIENT WAS DISCHARGE TO [facility].PERSONAL TRAINER NEO ( [employer]ER) ALSO MADE AWARE OF THE DISCHARGE WITH ORDERS. PATIENT DID NOT VERBALIZE SI/HI,DENIES VISUAL/AUDITORY HALLUCINATIONS AT THE TIME OF DISCHARGE. ALL DISCHARGE MEDICATIONS WAS REVIEWED WITH THE PATIENT WITH UNDERSTANDING. RX WAS GIVEN TO THE PATIENT.INSTRUCTED PATIENT TO FOLLOW UP WITH PCP AND PSYCHIATRIST IN A WEEK OR NEEDED. PER SW PT'S SISTER KATARINA WAS AWARE OF THE DISCHARGE. PATIENT LEFT THE UNIT IN STABLE CONDITION,A/O X4 AMBULATORY STEADY GAIT. ALL BELONGINGS WAS GIVEN BACK TO THE PATIENT. PATIENT WAS ACCOMPANIED BY ONE MASTER RIGGER STAFF IN THE LOBBY FOR SAFETY MASK WAS PROVIDED, LEFT VIA TAXI.
== END 2021-02-17 15:03 | disposition home or self-care (01) | DRG 885 ==
LOC: ER 19:49 → GPS 21:30
PROVIDERS: ADMIT Psychiatry & Neurology Psychiatry; ATTEND Nurse Practitioner Acute Care
DX: F31.89 Other bipolar disorder (principal); N17.0 Acute kidney failure with tubular necrosis; N18.9 Chronic kidney disease, unspecified; E11.65 Type 2 diabetes mellitus with hyperglycemia; F29 Unspecified psychosis not due to a substance or known physiological condition; F41.9 Anxiety disorder, unspecified; Z20.822 Contact with and (suspected) exposure to COVID-19; D63.8 Anemia in other chronic diseases classified elsewhere; E11.22 Type 2 diabetes mellitus with diabetic chronic kidney disease; F15.10 Other stimulant abuse, uncomplicated; Z73.6 Limitation of activities due to disability; Z79.84 Long term (current) use of oral hypoglycemic drugs
CPT/HCPCS: 36415; 80048-TC; 80061-TC; 80076-TC; 81001; 82570-TC; 82962-TC; 84155-TC; 84300-TC; 85025-TC; 87081-TC; 97116-TC; 97530-TC; C9803; G0480; J1815; J7030